=== PATIENT | female | born 1990 | race Caucasian/White ===

== ENCOUNTER 2016-12-11 20:03 | Emergency (ER) | payer MEDICAID ==
[2016-12-11 20:38] VITALS: BP 157/96
== END 2016-12-11 20:40 | disposition home or self-care (01) ==
LOC: ED 20:03
DX: K02.9 Dental caries, unspecified (principal); I10 Essential (primary) hypertension; Z79.1 Long term (current) use of non-steroidal anti-inflammatories (NSAID); Z79.2 Long term (current) use of antibiotics